=== PATIENT | male | born 1950 | race Caucasian/White ===

== ENCOUNTER → 2016-06-16 | Outpatient (CLI) | payer MEDICARE, MEDICAID ==
[~2016-06-16] MED LIST: MOTRIN800 MG PO
== END | disposition home or self-care (01) ==
LOC: MRI 08:00
DX: M25.561 Pain in right knee (principal)

== ENCOUNTER → 2023-06-02 | Outpatient (CLI) | payer MEDICARE, MEDICAID ==
[2023-06-02 14:44] LABS: BASO # 0.1 10*3/uL (0.0-0.1); BASO % 1.1 % (0.0-1.0); BILIRUBIN Negative (Negative); BLOOD Negative (Negative); CLARITY Clear (Clear); COLOR Yellow (Yellow); EOS # 0.2 10*3/uL (0.0-0.4); EOS % 4.1 % (1.0-4.0); GLUCOSE Negative (Negative); HEMATOCRIT 46.5 % (42.0-52.0); KETONE Negative (Negative); LEUKO ESTERASE Negative (Negative); LYMPH # 0.9 10*3/uL (1.3-4.4); LYMPH % 16.7 % (27.0-41.0); MEAN CELL VOLUME 94.1 fl (80.0-94.0); MEAN CORPUSCULAR HGB 29.8 pg (27.0-31.0); MEAN CORPUSCULAR HGB CONC 31.6 g/dl (33.0-37.0); MEAN PLATELET VOLUME 9.5 fl (9.6-12.3); MONO # 0.9 10*3/uL (0.1-1.0); MONO % 15.8 % (3.0-9.0); NEUT # 3.5 10*3/uL (2.3-7.9); NEUT % 61.9 % (47.0-73.0); NITRITE Negative (Negative); PLATELET COUNT AUTOMATED 228 10*3/uL (130-400); RED BLOOD COUNT 4.94 10*6/uL (4.50-5.90); RETICULOCYTE % 0.55 % (0.50-2.50); SPECIFIC GRAVITY <= 1.005 (1.001-1.030); UROBILINOGEN 0.2 E.U./dl (0.0-1.0); WHITE BLOOD COUNT 5.6 10*3/uL (4.8-10.8)
[2023-06-02 15:10] LABS: ALKALINE PHOSPHATASE 93 U/L (46-116); BUN 12 mg/dl (9-23); CHLORIDE 103 mmol/L (98-107); CHOLESTEROL 198 mg/dL (<200); GAMMA GLUTAMYL TRANSPEPTIDASE 24 U/L (0-73); LDL CHOLESTEROL 115 mg/dL (9-159); POTASSIUM 4.7 mmol/L (3.4-5.1); SGPT/ALT 16 U/L (5-49); T3 UPTAKE 27.2 % (22.4-36.7); THYROXINE (T4) TOTAL 6.9 ug/dl (4.5-10.9); TOTAL PROTEIN 8.1 gm/dL (6.0-8.0); TRIGLYCERIDES 79 mg/dl (<150); URIC ACID 3.5 mg/dL (3.7-9.2)
[2023-06-02 15:13] LABS: BACTERIA TRACE
[2023-06-02 15:47] LABS: VITAMIN D, 25-HYDROXY 31.1 ng/mL (30-100)
[2023-06-03 11:07] LABS: ANTI-DSDNA ANTIBODIES <1 IU/mL (0-9)
== END | disposition home or self-care (01) ==
LOC: LAB 14:19
PROVIDERS: ATTEND Family Medicine
DX: Z12.5 Encounter for screening for malignant neoplasm of prostate (principal); E78.5 Hyperlipidemia, unspecified; E55.9 Vitamin D deficiency, unspecified; R79.89 Other specified abnormal findings of blood chemistry; R53.83 Other fatigue; R74.8 Abnormal levels of other serum enzymes

== ENCOUNTER → 2023-06-11 | Outpatient (CLI) | payer MEDICARE, MEDICAID | END | disposition home or self-care (01) | LOC: MRI 12:29 → US 14:00 | PROVIDERS: ATTEND Family Medicine | DX: M51.37 Other intervertebral disc degeneration, lumbosacral region (principal); I99.8 Other disorder of circulatory system; M62.831 Muscle spasm of calf; M47.816 Spondylosis without myelopathy or radiculopathy, lumbar region; M48.061 Spinal stenosis, lumbar region without neurogenic claudication; R09.89 Other specified symptoms and signs involving the circulatory and respiratory systems ==

== ENCOUNTER 2024-02-17 18:20 | Emergency (ER) | payer MEDICARE ==
[~2024-02-17] VITALS: Ht 177.8 cm; Wt 72.6 kg
[2024-02-17] MEDS ORDERED: Tdap Vaccine 0.5 ML SYR (Adult Vaccine) IM ONE (18:45)
[2024-02-17] MEDS ORDERED: Lidocaine Hydrochloride 30 ML VIAL SC ONE (18:50)
[2024-02-17] MEDS ORDERED: EPINEPHrine/Lidocaine Hydroc 10 ML VIAL IJ ONE (19:40)
== END 2024-02-17 20:32 | disposition home or self-care (01) ==
LOC: ED 18:20
DX: S91.311A Laceration without foreign body, right foot, initial encounter (principal); S80.212A Abrasion, left knee, initial encounter; S80.211A Abrasion, right knee, initial encounter; W11.XXXA Fall on and from ladder, initial encounter; Y93.89 Activity, other specified; Y92.009 Unspecified place in unspecified non-institutional (private) residence as the place of occurrence of the external cause; Y99.8 Other external cause status

== ENCOUNTER → 2024-02-25 | Outpatient (CLI) | payer MEDICARE | END | disposition home or self-care (01) | LOC: US 13:00 | PROVIDERS: ATTEND Family Medicine | DX: R60.0 Localized edema (principal); M79.604 Pain in right leg ==

== ENCOUNTER → 2024-03-06 | Outpatient (CLI) | payer MEDICARE | END | disposition home or self-care (01) | LOC: MRI 01:55 | PROVIDERS: ATTEND Family Medicine | DX: S93.601D Unspecified sprain of right foot, subsequent encounter (principal); S93.401D Sprain of unspecified ligament of right ankle, subsequent encounter; M19.071 Primary osteoarthritis, right ankle and foot; R60.0 Localized edema; M79.89 Other specified soft tissue disorders; X58.XXXD Exposure to other specified factors, subsequent encounter ==

== ENCOUNTER → 2024-03-21 | Outpatient (CLI) | payer MEDICARE | END | disposition home or self-care (01) | LOC: WOUNDCARE 02:26 | PROVIDERS: ATTEND Nurse Practitioner Family | DX: S91.301D Unspecified open wound, right foot, subsequent encounter (principal); S91.011D Laceration without foreign body, right ankle, subsequent encounter; L03.90 Cellulitis, unspecified; X58.XXXD Exposure to other specified factors, subsequent encounter ==

== ENCOUNTER → 2024-03-28 | Outpatient (CLI) | payer MEDICARE | END | disposition home or self-care (01) | LOC: WOUNDCARE 00:46 | PROVIDERS: ATTEND Nurse Practitioner Family | DX: S91.011D Laceration without foreign body, right ankle, subsequent encounter (principal); S91.301D Unspecified open wound, right foot, subsequent encounter; L03.90 Cellulitis, unspecified; Z98.890 Other specified postprocedural states; W11.XXXD Fall on and from ladder, subsequent encounter ==

== ENCOUNTER → 2024-04-04 | Outpatient (CLI) | payer MEDICARE | END | disposition home or self-care (01) | LOC: WOUNDCARE 04:43 | PROVIDERS: ATTEND Nurse Practitioner Family | DX: S91.301D Unspecified open wound, right foot, subsequent encounter (principal); S91.011D Laceration without foreign body, right ankle, subsequent encounter; L03.90 Cellulitis, unspecified; L84 Corns and callosities; X58.XXXD Exposure to other specified factors, subsequent encounter ==